=== PATIENT | male | born 2000 | race Caucasian/White ===

== ENCOUNTER 2022-06-01 20:49 | Emergency (ER) | payer OTHER ==
[~2022-06-01] VITALS: Ht 175.3 cm; Wt 72.6 kg
[2022-06-01 22:14] VITALS: BP 120/57
--- NOTE | 2022-06-01 22:21 | NUR ---
Pt triaged and placed in WR.
--- NOTE | 2022-06-01 23:22 | NUR ---
PT TO BED 06.
--- NOTE | 2022-06-01 23:23 | NUR ---
Patient resting in bed, A/Ox4, chest rise and fall symmetrical, no s/s of distress, on monitor
[2022-06-01] MEDS ORDERED: AMOXIL/CLAVULANATE 875/125 MG 1 TAB PO ONE (23:45)
[2022-06-01] MEDS ORDERED: IBUP-2218 PO (23:52)
[2022-06-01] MEDS ORDERED: AMOX1TAB8 PO (23:52)
[2022-06-01 23:54] VITALS: BP 117/85
== END 2022-06-01 23:55 | disposition home or self-care (01) ==
LOC: MED 20:49
DX: K01.1 Impacted teeth (principal); R07.0 Pain in throat; Z79.1 Long term (current) use of non-steroidal anti-inflammatories (NSAID); Z79.2 Long term (current) use of antibiotics; Z88.2 Allergy status to sulfonamides
CPT/HCPCS: 99283